=== PATIENT | male | born 1960 | race Caucasian/White ===

== ENCOUNTER → 2016-05-19 | Outpatient (REF) | payer OTHER ==
[2016-05-19 13:52] LABS: BASOPHILS % (AUTO) 1 % (0-2); EOSINOPHILS # (AUTO) 0.1 10^3uL; EOSINOPHILS % (AUTO) 2 % (0-4); MEAN CORPUSCULAR HEMOGLOBIN 30.8 PG (26.0-34.0); MEAN CORPUSCULAR HGB CONC 34.2 g/dL (31.0-37.0); MEAN CORPUSCULAR VOLUME 90 FL (80-100); MEAN PLATELET VOLUME 10.5 FL (6.0-9.5); MONOCYTES # (AUTO) 0.6 X10^3; MONOCYTES % (AUTO) 10 % (3-11); NEUTROPHILS # (AUTO) 3.2 X10^3; NEUTROPHILS % (AUTO) 54 % (51-67); PLATELET COUNT 166 10^3uL (150-450); WHITE BLOOD COUNT 5.88 10^3uL (4.0-11.0)
[2016-05-19 14:33] LABS: ANION GAP 14.7 MEQ/L (3-15); CALCULATED IONIZED CALCIUM 4.1 mg/dL (3.8-4.6); TOTAL PROTEIN 6.8 g/dL (6.4-8.5)
== END ==
LOC: LAB 13:40
PROVIDERS: ATTEND Family Medicine
DX: R63.4 Abnormal weight loss (principal); R30.0 Dysuria; E78.4 Other hyperlipidemia; Z72.0 Tobacco use; F33.0 Major depressive disorder, recurrent, mild
CPT/HCPCS: 80053; 80061; 82550; 84153; 84443; 85025

== ENCOUNTER → 2016-05-19 | Outpatient (CLI) | payer OTHER ==
[2016-05-19 15:19] LABS: CLARITY,URINE Clear; GLUCOSE, URINE (UA) Negative (Negative); LEUKOCYTE ESTERASE ,URINE Negative (Negative); PH,URINE 5.5 (5.0 - 8.0)
[2016-05-19 15:21] LABS: BILIRUBIN,URINE 1+ (Negative)
[2016-05-19 15:23] LABS: COLOR,URINE Dark Yellow
== END ==
LOC: LAB 15:07
PROVIDERS: ATTEND Family Medicine
DX: R63.4 Abnormal weight loss (principal); E78.4 Other hyperlipidemia; R30.0 Dysuria; Z72.0 Tobacco use; F33.0 Major depressive disorder, recurrent, mild
CPT/HCPCS: 81003